=== PATIENT | female | born 1960 | race Caucasian/White ===

== ENCOUNTER 2025-04-06 11:29 | Day surgery (SDC) | payer BC ==
[~2025-04-06 11:29] MED LIST: Propofol 200 MG/20 ML SDV ONE; fentaNYL 100 MCG/2 ML SDV ONE
[2025-04-06] MEDS: Lactated Ringers 1,000 ML IV SCH (11:44)
== END 2025-04-06 15:52 | disposition home or self-care (01) ==
LOC: VM.SDS 11:29
PROVIDERS: ATTEND Family Medicine
DX: Z12.11 Encounter for screening for malignant neoplasm of colon (principal); K57.30 Diverticulosis of large intestine without perforation or abscess without bleeding; D12.0 Benign neoplasm of cecum; D12.2 Benign neoplasm of ascending colon; D12.3 Benign neoplasm of transverse colon; D12.8 Benign neoplasm of rectum; K63.5 Polyp of colon; E78.2 Mixed hyperlipidemia; F32.A Depression, unspecified; E66.9 Obesity, unspecified; Z80.0 Family history of malignant neoplasm of digestive organs; Z79.899 Other long term (current) drug therapy
CPT/HCPCS: 00811; J2704; J3010; J7120